=== PATIENT | female | born 1945 | race Hispanic/Latino ===

== ENCOUNTER 2017-03-02 14:40 | Emergency (ER) | payer MEDICARE, OTHER ==
[2017-03-02 14:53] VITALS: BP 155/51; PULSE 81; RESP 18; TEMP 98.6; O2SAT 96
[2017-03-02] MEDS ORDERED: Silver Nitrate Topical - Stick TOP ONE (15:15)
[2017-03-02] MEDS ORDERED: Silver Nitrate Topical - Stick ONE ×2 (15:20→16:07)
--- NOTE | 2017-03-02 16:01 | ED PDOC ---
HPI: General Adult Time Seen by Provider: 03/02/17 14:58 Chief Complaint (Nursing): ENT Problem History Per: Patient Additional Complaint(s): Pt. states for the past several days she's had intermittent nosebleeds. She was seen by her ENT, Dr. Travis who cauterized her nose. Today bleeding started once again prompting ED visit. Denies weakness, dizziness, chest pain, SOB, hx of anemia, previous transfusions. Past Medical History Reviewed: Historical Data, Nursing Documentation, Vital Signs Vital Signs: Last Vital Signs Temp 98.6 F 03/02/17 14:51 Pulse 81 03/02/17 14:51 Resp 18 03/02/17 14:51 BP 155/51 H 03/02/17 14:51 Pulse Ox 96 03/02/17 16:11 - Medical History PMH: HTN - Surgical History Surgical History: Coronary Stent (x4) - Family History Family History: States: No Known Family Hx - Home Medications Home Medications: Ambulatory Orders Medication Instructions Recorded Aspirin [Ecotrin] 81 mg PO DAILY 03/02/17 Ezetimibe [Zetia] 10 mg PO HS 03/02/17 Glimepiride [amaRYL] 4 mg PO BID 03/02/17 Losartan [Cozaar] 50 mg PO DAILY 03/02/17 Metoprolol Succinate [Toprol XL] 50 mg PO DAILY 03/02/17 Prasugrel [Effient] 10 mg PO DAILY 03/02/17 Simvastatin [Zocor] 40 mg PO HS 03/02/17 Sitagliptin Phos/Metformin HCl 1 tab PO BID 03/02/17 [Janumet 50-1,000 mg Tablet] Vorapaxar Sulfate [Zontivity] 2.08 mg PO HS 03/02/17 - Allergies Allergies/Adverse Reactions: Allergies Allergy/AdvReac Type Severity Reaction Status Date / Time No Known Allergies Allergy Verified 03/02/17 14:50 Review of Systems ROS Statement: Except As Marked, All Systems Reviewed And Found Negative Physical Exam - Physical Exam Appears: Positive for: Well, Non-toxic, No Acute Distress Head Exam: Positive for: ATRAUMATIC, NORMAL INSPECTION, NORMOCEPHALIC Skin: Positive for: Normal Color, Warm. Negative for: Rash Eye Exam: Positive for: EOMI, Normal appearance, PERRL ENT: Positive for: Pharynx Is (clear without bleeding), Other (L anterior nasal septum with non-pulsatile bleeding noted; no septal hematoma) Neck: Positive for: Normal, Painless ROM Neurologic/Psych: Positive for: Alert, Oriented - ECG O2 Sat by Pulse Oximetry: 96 Procedures - Time-Out Type of Procedure: L nostril cauterization Site of Procedure: L nostril Correct Patient (with visual ID + MR# on ID Band): Yes Correct Procedure: Yes Correct Site Marked: Yes PA/Tech: Zander - Additional Procedures Progress: L nostril was cauterized twice with hemostasis achieved. Disposition - Clinical Impression Clinical Impression: Epistaxis - Patient ED Disposition Is Patient to be Admitted: No - Disposition Referrals: Gladys Contreras [Outside] Disposition: Routine/Home Disposition Time: 15:30 Condition: STABLE Instructions: Nosebleed (ED) Forms: [employer] ([place]) Print Language: KITTITIAN
== END 2017-03-02 16:50 | disposition home or self-care (01) ==
LOC: H.ER 14:40
DX: R04.0 Epistaxis (principal); I10 Essential (primary) hypertension; Z79.82 Long term (current) use of aspirin; Z95.5 Presence of coronary angioplasty implant and graft